=== PATIENT | female | born 2000 | race Caucasian/White ===

== ENCOUNTER 2023-12-02 01:15 | Emergency (ER) | payer OTHER, SELFPAY ==
[2023-12-02 01:33] VITALS: BP 107/66; BP 123/78; PULSE 130; PULSE 95; RESP 16; TEMP 36.8; O2SAT 97; O2SAT 99; BMI 24.2
[2023-12-02 01:41] VITALS: BP 107/66; PULSE 95; RESP 16; TEMP 36.8; O2SAT 99
--- NOTE | 2023-12-02 02:26 | ED_ITS ---
HPI - Psych General Chief Complaint: ETOH/Substance Use Stated Complaint: FOUND UNRESPONSIVE/UNKNOWN SUBSTANCE ABUSE Time Seen by Provider: 12/02/23 02:22 Source: patient and EMS Mode of arrival: ambulatory Limitations: no limitations History of Present Illness ED Provider: Dr. Lillie Hankins HPI Narrative: Patient comes to the emergency room by ambulance. Patient was found unresponsive in her dorm. When fire arrived at the scene, patient was sitting in the bed alert and oriented. Patient refusing to answer questions. Friends at the scene stated that she had some medication but unsure what it was. Related Data Allergies Allergy/AdvReac Type Severity Reaction Status Date / Time No Known Allergies Allergy Verified 12/02/23 01:40 Review of Systems 2 Review of Systems: Yes Other (Uncooperative) [facility] Social History Social History Alcohol intake: current Smoked in Last 30 Days: Yes Substance Use Type: Marijuana Advance Directives: No Advance Directives Information Provided: No Do you have a plan to hurt others: No Plan Patient : No Physical Exam 2 Vital Signs: Vital Signs: Last Vital Signs Temp 98.1 F 12/02/23 08:05 Pulse 74 12/02/23 08:05 Resp 16 12/02/23 10:00 BP 106/59 L 12/02/23 08:05 Pulse Ox 100 12/02/23 08:05 O2 Del Method Room Air 12/02/23 08:05 BMI result Body Mass Index 24.2 Const: Other: Appearance: Alert. Sitting in bed, uncooperative, covered up Eyes: Pupils equal, round and reactive to light. ENT: Pharynx normal. Neck: Normal inspection. Neck supple. No lymph nodes noted. No crepitus CVS: Normal heart rate and rhythm. Pulses normal. Normal S1 and S2 Respiratory: No respiratory distress. Breath sounds normal. No Wheezing. No rales Abdomen: Soft and nontender. No rigidity. No distention. Skin: Skin warm and dry. Normal skin color. Normal skin turgor. Extremities: No lower extremity edema. No Lacerations. No Rash Neuro: Oriented X 3. No motor deficit. No sensory deficit. Moving all extremities. No slurred speech. CN 2 through 12 grossly intact Psych: Intoxicated, uncooperative Course Course Course Narrative: All of patient's labs pending -patient is under physician observation waiting to become more sober. Physician observation started at 03:10 -At this time, patient is uncooperative, refusing to answer questions, too drunk, belligerent -metabolize to freedom and then once sober, assess for SI and HI. - - Reevaluation(s) Reevaluation #1: The patient was signed out to me by the overnight emergency physician pending at an evaluation by the care team. Apparently the patient had made some suicidal statements last night while intoxicated. The patient was seen by the care team. This morning the patient has recanted any suicidal ideation. The patient has recently started at [employer]. She is starting as a martina. Apparently she has previously been in college at [employer] in [place]. Apparently while at [place] she drank fairly heavily. She has been sober for 5 months before drinking last night. This morning the patient acknowledges that she was intoxicated but has no recollection of making any suicidal statements. She denies any suicidal thoughts at the moment. She has been seen by the care team and has been cleared for discharge to return to campus. The patient seems calm and cooperative and does not have any plans to harm herself. Time: 12:03 Medications Administered Discontinued Medications Generic Name Dose Route Start Last Admin Trade Name Constantineq PRN Reason Stop Dose Admin Diphenhydramine HCl 50 mg 12/02/23 03:20 12/02/23 03:25 Diphenhydramine Hcl 50 Mg/Ml Vial IM 12/02/23 03:21 50 mg ONCE ONE Administration Diphenhydramine HCl 50 mg 12/02/23 03:21 12/02/23 04:37 Diphenhydramine Hcl 25 Mg Capsule PO 12/02/23 03:22 Not Given ONCE ONE Haloperidol 5 mg 12/02/23 03:21 12/02/23 04:37 Haloperidol 5 Mg Tablet PO 12/02/23 03:22 Not Given ONCE ONE Haloperidol Lactate 5 mg 12/02/23 03:20 12/02/23 03:26 Haloperidol Lactate 5 Mg/Ml Vial IM 12/02/23 03:21 5 mg STAT STA Administration Lorazepam 2 mg 12/02/23 03:20 12/02/23 03:26 Lorazepam 2 Mg/Ml Vial IM 12/02/23 03:21 2 mg STAT STA Administration Lorazepam 2 mg 12/02/23 03:21 12/02/23 04:37 Lorazepam 1 Mg Tablet PO 12/02/23 03:22 Not Given ONCE ONE Medical Decision Making Lab Data 12/02/23 02:56 12/02/23 02:56 Labs: Lab Results 12/02/23 12/02/23 Range/Units 02:56 11:13 WBC 9.9 (4.8-10.8) X10*3/uL RBC 4.67 (4.20-5.50) X10*6/uL Hgb 14.2 (12.0-16.0) g/dl Hct 41.3 (37.0-47.0) % MCV 88.4 (80.0-98.0) fL MCH 30.4 (27.0-33.0) pg MCHC 34.4 (31.0-35.0) g/dl RDW 13.4 (11.0-16.0) % Plt Count 322 (160-400) X10*3/uL MPV 9.4 (9.4-12.3) fL Immature Gran % (Auto) 0.3 (0.0-0.4) % Neut % (Auto) 65.6 (45-73) % Lymph % (Auto) 27.4 (20-40) % Brown % (Auto) 6.0 (2-11) % Eos % (Auto) 0.3 (0-4) % Baso % (Auto) 0.4 (0-2) % Lymph # (Auto) 2.7 (1.2-4.9) X10*3/uL Brown # (Auto) 0.6 (0.1-1.2) X10*3/uL Eos # (Auto) 0.0 (0.0-0.4) X10*3/uL Baso # (Auto) 0.0 (0.0-0.2) X10*3/uL Abs Immat Gran (auto) 0.03 (0.00-0.03) X10*3/uL Absolute Neuts (auto) 6.5 (2.0-8.3) x10*3/uL Absolute Nucleated RBC 0.000 (0.0-0.012) X10*3/uL Nucleated RBC % (auto) 0.0 (0.0-0.2) /100WBC Sodium 144 (135-145) mmol/L Potassium 3.9 (3.3-5.1) mmol/L Chloride 113 H (96-108) mmol/L Carbon Dioxide 20 L (22-29) mmol/L Anion Gap 15 (12-20) BUN 8 L (9-16) mg/dL Creatinine 0.69 (0.5-1.4) mg/dL Estim Creat Clear Calc 100.5 Estimated GFR > 60 Random Glucose 87 (60-115) mg/dL Calcium 9.2 (8.4-10.2) mg/dL Total Bilirubin 0.2 (0.0-1.0) mg/dL AST 16 (5-31) U/L ALT 13 (0-31) U/L Alkaline Phosphatase 47 (39-117) U/L Total Protein 7.5 (6.5-8.0) g/dL Albumin 4.6 (3.5-5.0) g/dL Urine Opiates Screen Not Detected (Not Detect) Ur Buprenorphine Scrn Not Detected (Not Detect) ng/mL Ur Oxycodone Screen Not Detected (Not Detect) ng/mL Urine Methadone Screen Not Detected (Not Detect) ng/mL Urine Fentanyl Screen Not Detected (Not Detect) Ur Barbiturates Screen Not Detected (Not Detect) Ur Phencyclidine Scrn Not Detected (Not Detect) Ur Amphetamines Screen Not Detected (Not Detect) U Benzodiazepines Scrn Not Detected (Not Detect) Urine Cocaine Screen Not Detected (Not Detect) U Marijuana (THC) Screen POSITIVE H (Not Detect) Ethyl Alcohol 277 mg/dL Discharge Plan Discharge Clinical Impression: Alcoholic intoxication Patient Disposition: Home, Self-Care Additional Instructions: Please do your best to avoid alcohol use. Please follow up with [facility]. If at any point you feel significantly depressed or wished to speak to somebody about how you are feeling you can contact the Crisis Hotline at [phone] or [phone]. Return to the emergency department at any time if you feel significantly worse. Referrals: [facility] [Provider Group] (Alcohol intoxication) Print Language: Malay
--- NOTE | 2023-12-02 02:39 | MHC.EDTECH ---
Patient refused labs, RN aware
--- NOTE | 2023-12-02 03:01 | PC.NURSE ---
Expressing, I am hopeless and don't want to live with this. Evaluations are going to just be more detrimental. In speaking to her mother she was screaming you don't care about my mental health, Ashley tried telling you i need help and you dont listen. patient very tearful, rocking back and forth. Making sentences that don't make sense.
[2023-12-02 03:04] LABS: MANUAL DIFF FLAG NO
[2023-12-02 03:05] LABS: Basophils Percent Auto 0.4 % (0-2); Eosinophils Percent Auto 0.3 % (0-4); Hematocrit 41.3 % (37.0-47.0); Hemoglobin 14.2 g/dl (12.0-16.0); Imm Gran Abs Auto 0.03 X10*3/uL (0.00-0.03); Imm Gran Pct Auto 0.3 % (0.0-0.4); Lymphocytes Absolute Auto 2.7 X10*3/uL (1.2-4.9); Lymphocytes Percent Auto 27.4 % (20-40); Mean Corpuscular HGB Conc 34.4 g/dl (31.0-35.0); Mean Corpuscular Hemoglobin 30.4 pg (27.0-33.0); Mean Corpuscular Volume 88.4 fL (80.0-98.0); Mean Platelet Volume 9.4 fL (9.4-12.3); Monocytes Absolute Auto 0.6 X10*3/uL (0.1-1.2); Neutrophils Absolute Auto 6.5 x10*3/uL (2.0-8.3); Neutrophils Percent Auto 65.6 % (45-73); Platelet Count 322 X10*3/uL (160-400); Red Blood Count 4.67 X10*6/uL (4.20-5.50); Red Cell Distribution Width 13.4 % (11.0-16.0); White Blood Count 9.9 X10*3/uL (4.8-10.8)
--- NOTE | 2023-12-02 03:05 | PC.NURSE ---
stop leave me alone, i just want to go away.
--- NOTE | 2023-12-02 03:10 | PC.NURSE ---
i know that i am a terrible person, i know that i suck, i just want to leave.
--- NOTE | 2023-12-02 03:18 | PC.NURSE ---
Belongings are located in C2
[2023-12-02 03:21] LABS: Alanine Aminotransferase 13 U/L (0-31); Albumin Level 4.6 g/dL (3.5-5.0); Alkaline Phosphatase 47 U/L (39-117); Anion Gap 15 (12-20); Aspartate Amino Transferase 16 U/L (5-31); Bilirubin Total 0.2 mg/dL (0.0-1.0); Blood Urea Nitrogen 8 mg/dL (9-16); Calcium 9.2 mg/dL (8.4-10.2); Carbon Dioxide 20 mmol/L (22-29); Chloride 113 mmol/L (96-108); Creatinine Clr Calc Pharmacy 100.5; Estimated Glomerular Filt Rate > 60; Ethanol 277 mg/dL; Glucose Random 87 mg/dL (60-115); Potassium 3.9 mmol/L (3.3-5.1); Sodium 144 mmol/L (135-145); Total Protein 7.5 g/dL (6.5-8.0)
--- NOTE | 2023-12-02 03:22 | PC.NURSE ---
i just want to , leave me alone.
[2023-12-02] MEDS: diphenhydrAMINE HCL 50 MG/ML VIAL IM (03:25)
[2023-12-02] MEDS: Haloperidol Lactate 5 MG/ML VIAL IM (03:26)
[2023-12-02] MEDS: LORazepam 2 MG/ML VIAL IM (03:26)
--- NOTE | 2023-12-02 03:30 | PC.NURSE ---
Patient needed to be chemically restrained at this time due to unsafe behaviors. Patient hiding in corner of room then jumping off the bed and back into bed and screaming. Patient endorsing SI.
[2023-12-02 06:00] VITALS: RESP 16
--- NOTE | 2023-12-02 08:01 | PC.NURSE ---
patient resting in ED stretcher, has sitetr
--- NOTE | 2023-12-02 08:02 | PC.NURSE ---
patient resting quietly in ED stretcher, patient respirations equal and unlabored, skin dry and intact, patient has sitter 1:1.
[2023-12-02 08:05] VITALS: BP 106/59; PULSE 74; RESP 16; TEMP 36.7; O2SAT 100
[2023-12-02 10:00] VITALS: RESP 16
--- NOTE | 2023-12-02 11:07 | PC.NURSE ---
patient is awake, ambulate to the bathroom. patient states she does not remember what happened the night prior
[2023-12-02 11:40] LABS: Amphetamine Screen Urine Not Detected (Not Detect); Barbiturates, Urine Not Detected (Not Detect); Benzodiazepines Screen Urine Not Detected (Not Detect); Buprenorphine Scr Not Detected (Not Detect); Cannabinoid Screen Urine POSITIVE (Not Detect); Cocaine Screen Urine Not Detected (Not Detect); Fentanyl, urine Not Detected (Not Detect); Methadone Screen, Urine Not Detected (Not Detect); Opiate Screen Urine Not Detected (Not Detect); Oxycodone Screen Urine Not Detected (Not Detect); Phencyclidine Screen Urine Not Detected (Not Detect)
[2023-12-02 12:26] VITALS: BP 131/81; PULSE 116; RESP 18; TEMP 36.4; O2SAT 97
== END 2023-12-02 12:27 | disposition home or self-care (01) ==
PROVIDERS: Emergency Medicine; Emergency Provider Emergency Medicine
DX: F10.220 Alcohol dependence with intoxication, uncomplicated (principal); Y90.8 Blood alcohol level of 240 mg/100 ml or more; R40.4 Transient alteration of awareness; R45.1 Restlessness and agitation; F12.90 Cannabis use, unspecified, uncomplicated
CPT/HCPCS: 36415; 80053; 80307; 85025; 96372; 99285; J1200; J1630; J2060; S9485